=== PATIENT | female | born 1955 | race Caucasian/White ===

== ENCOUNTER 2016-09-12 07:54 | Emergency (ER) | payer BC ==
--- NOTE | 2016-09-12 08:12 | CPEKG ---
Heart Rate: 74 RR Interval: 811 P-R Interval: 152 QRSD Interval: 88 QT Interval: 384 QTC Interval: 426 P Gray: 47 QRS Gray: 37 T Wave Gray: 38 EKG Severity - NORMAL ECG - EKG Impression: SINUS RHYTHM Electronically Signed By: Jim Cristobal 12-Sep-2016 09:16:26
[2016-09-12] MEDS ORDERED: LIDOCAINE 2% VISCOUS 15 ML UDCUP PO ONE (08:27)
[2016-09-12] MEDS ORDERED: HYOSCYAMINE SULFATE 0.125 MG TAB PO ONE (08:27)
[2016-09-12] MEDS ORDERED: MAG HYDROX/AL HYDROX/SIMETH 30 ML UDCUP PO ONE (08:27)
[2016-09-12 08:33] LABS: % IMMATURE GRANULYOCYTES 0.5 % (0.0-1.1); ABSOLUTE IMMATURE GRANULOCYTES 0.04 10^3/uL (0.00-0.10); ADD DIFF? NO; ADD MORPH? NO; ADD SCAN? NO; ATYPICAL LYMPHOCYTE FLAG 10 (0-99); FRAGMENT RBC FLAG 0 (0-99); HEMATOCRIT 44.4 % (38.0-47.0); HEMOGLOBIN 15.5 g/dL (12.6-16.3); LEFT SHIFT FLG 0 (0-99); LIPEMIA HEMOLYSIS FLAG 90 (0-99); MEAN CELL HEMOGLOBIN 31.8 pg (27.9-34.1); MEAN CELL HEMOGLOBIN CONCENTR. 34.9 g/dL (32.4-36.7); MEAN PLATELET VOLUME 9.1 fL (8.7-11.7); PLATELET CLUMPS FLAG 10 (0-99); PLATELET COUNT 288 10^3/uL (150-400); RED BLOOD CELL COUNT 4.88 10^6/uL (4.18-5.33); RED CELL DISTRIBUTION WIDTH 13.1 % (11.5-15.2)
[2016-09-12 08:51] LABS: CARBON DIOXIDE 20 mEq/l (22-31); CHLORIDE 106 mEq/L (97-110); POTASSIUM 4.2 mEq/L (3.5-5.2); SODIUM 139 mEq/L (134-144)
[2016-09-12 08:52] LABS: ALANINE AMINOTRANSFERASE 29 IU/L (9-52); ALBUMIN 4.4 g/dL (3.5-5.0); ALKALINE PHOSPHATASE 110 IU/L (38-126); ANION GAP 13 mEq/L (8-16); ASPARTATE AMINOTRANSFERASE 18 IU/L (14-46); BILIRUBIN,TOTAL 0.9 mg/dL (0.1-1.4); BILIRUBIN-CONJUGATED 0.3 mg/dL (0.0-0.5); BILIRUBIN-UNCONJUGATED 0.6 mg/dL (0.0-1.1); CALCIUM 9.9 mg/dL (8.5-10.4); GLOMERULAR FILTRATION RATE 56; GLUCOSE 103 mg/dL (70-100); TOTAL PROTEIN 7.7 g/dL (6.3-8.2)
[2016-09-12 09:03] LABS: TROPONIN I < 0.012 ng/mL (0-0.034)
--- NOTE | 2016-09-12 09:08 | EDPHY ---
H & P Stated Complaint: Midsternal CP since yesterday during dental procedure;didn't use NTG Time Seen by Provider: 09/12/16 08:10 HPI/ROS: CHIEF COMPLAINT: Substernal chest discomfort HISTORY OF PRESENT ILLNESS: The patient presents to the ED with a 1 day history of substernal chest discomfort. The patient's symptoms reportedly started while she was getting a root canal yesterday. They began at 4:00 p.m.. It has been a constant substernal ache that has been present since that time and continued to persist today. The patient does have a history of coronary artery disease and last underwent stenting of her LAD in November of 2015. The patient reports the symptoms she has today are not typical of her anginal equivalent. The patient denies pleuritic chest pain. She denies history of asymmetric calf pain or swelling. She denies abdominal pain, vomiting or diarrhea. The patient reports her symptoms are moderate in nature. REVIEW OF SYSTEMS: A comprehensive 10 point review of systems is otherwise negative aside from elements mentioned in the history of present illness. Source: Patient Exam Limitations: No limitations - Personal History Current Tetanus Diphtheria and Acellular Pertussis (TDAP): Yes - Medical/Surgical History Hx Asthma: No Hx Chronic Respiratory Disease: No Hx Diabetes: No Hx Cardiac Disease: Yes Hx Renal Disease: No Hx Cirrhosis: No Hx Alcoholism: No Hx HIV/AIDS: No Hx Splenectomy or Spleen Trauma: No Other PMH: prediabetes, htn, insomnia, psvt, gastritis, polyarthritis, v-d deficiency, hyperlipidemia, GERD, 3 stents 11/2015 - Social History Smoking Status: Current every day smoker - Physical Exam Exam: General Appearance: Alert, no distress Eyes: Pupils equal and round no pallor or injection ENT, Mouth: Mucous membranes moist Respiratory: There are no retractions, lungs are clear to auscultation Cardiovascular: Regular rate and rhythm Gastrointestinal: Abdomen is soft and nontender, no masses, bowel sounds normal Neurological: A&O, normal motor function, normal sensory exam, normal cranial nerves Skin: Warm and dry, no rashes Musculoskeletal: Neck is supple nontender Extremities: symmetrical, full range of motion Constitutional: Initial Vital Signs Temperature (C) 36.9 C 09/12/16 07:55 Heart Rate 72 09/12/16 07:55 Respiratory Rate 18 09/12/16 07:55 Blood Pressure 193/115 H 09/12/16 07:55 O2 Sat (%) 97 09/12/16 07:55 O2 Delivery Mode Room Air Allergies/Adverse Reactions: Penicillins Allergy (Intermediate, Verified 09/12/16 07:59) Hives Home Medications: Medication Instructions Recorded Acetaminophen [Tylenol ES 500 mg 1,000 mg PO BID PRN 12/15/14 (*)] Amitriptyline HCl [Elavil] 25 mg PO HS 12/15/14 Aspirin EC [Aspirin EC 325 mg (*)] 325 mg PO DAILY #0 tab 12/18/14 Clopidogrel Bisulfate [Plavix (*)] 75 mg PO DAILY #30 tab 12/18/14 Metoprolol Tartrate [Lopressor 25 50 mg PO BID #60 tab 12/18/14 mg (*)] Nitroglycerin [Nitrostat 0.4 mg 0.4 mg SL PRN PRN #1 btl 12/18/14 (*)] Losartan Potassium [Cozaar 50 mg 100 mg PO DAILY 12/21/15 (*)] Cephalexin [Keflex (*)] 500 mg PO 09/12/16 Ibuprofen [Motrin (*)] 800 mg PO 09/12/16 Medical Decision Making - Diagnostics EKG Interpretation: EKG: Complete interpretation has been separately recorded in the [facility] archive. Summary impression: Sinus rhythm Imaging Results: Imaging Impressions Chest X-Ray 09/12/16 08:27 Impression: No acute abnormality. ED Course/Re-evaluation: I reviewed the patient's past medical records. Her initial EKG demonstrates no evidence of ischemia. The patient has had symptoms since 4:00 p.m. yesterday. Her initial troponin is also negative. The patient did receive a GI cocktail. The patient's chest x-ray demonstrates no evidence of acute disease. In the patient has normal liver function tests and lipase. I re-evaluated the patient at 9:30 a.m.. She is essentially asymptomatic at this point time after a GI cocktail. I do believe she presents to the ED with likely esophageal discomfort in the setting of recent dental work which she was in a supine position for prolonged period of time. The patient states that her symptoms today were not like her anginal equivalent. The patient did undergo a angiogram in November of 2015. She had no significant disease noted outside the area of her LAD which was stented at that point time. The patient does understand that we cannot fully exclude occult progressive coronary artery disease. The patient would like to follow up with her art model as an outpatient. She would like to be discharged home. My suspicion is that the etiology of her symptoms is secondary to reflux Differential Diagnosis: Differential diagnosis considered includes esophageal spasm, acute coronary syndrome, pericarditis, myocardial infarction, pancreatitis - Data Points Laboratory Results: Laboratory Results 09/12/16 08:23 09/12/16 08:23 09/12/16 09/12/16 08:23 08:23 WBC 8.75 10^3/uL 10^3/uL (3.80-9.50) RBC 4.88 10^6/uL 10^6/uL (4.18-5.33) Hgb 15.5 g/dL g/dL (12.6-16.3) Hct 44.4 % % (38.0-47.0) MCV 91.0 fL fL (81.5-99.8) MCH 31.8 pg pg (27.9-34.1) MCHC 34.9 g/dL g/dL (32.4-36.7) RDW 13.1 % % (11.5-15.2) Plt Count 288 10^3/uL 10^3/uL (150-400) MPV 9.1 fL fL (8.7-11.7) Neut % (Auto) 56.8 % % (39.3-74.2) Lymph % (Auto) 31.5 % % (15.0-45.0) [place] % (Auto) 8.5 % % (4.5-13.0) Eos % (Auto) 2.2 % % (0.6-7.6) Baso % (Auto) 0.5 % % (0.3-1.7) Nucleat RBC Rel Count 0.0 % % (0.0-0.2) Absolute Neuts (auto) 4.98 10^3/uL 10^3/uL (1.70-6.50) Absolute Lymphs (auto) 2.76 10^3/uL 10^3/uL (1.00-3.00) Absolute Monos (auto) 0.74 10^3/uL 10^3/uL (0.30-0.80) Absolute Eos (auto) 0.19 10^3/uL 10^3/uL (0.03-0.40) Absolute Basos (auto) 0.04 10^3/uL 10^3/uL (0.02-0.10) Absolute Nucleated RBC 0.00 10^3/uL 10^3/uL (0-0.01) Immature Gran % 0.5 % % (0.0-1.1) Immature Gran # 0.04 10^3/uL 10^3/uL (0.00-0.10) Sodium 139 mEq/L mEq/L (134-144) Potassium 4.2 mEq/L mEq/L (3.5-5.2) Chloride 106 mEq/L mEq/L (97-110) Carbon Dioxide 20 mEq/l L mEq/l (22-31) Anion Gap 13 mEq/L mEq/L (8-16) BUN 14 mg/dL mg/dL (7-23) Creatinine 1.0 mg/dL mg/dL (0.6-1.0) Estimated GFR 56 Glucose 103 mg/dL H mg/dL (70-100) Calcium 9.9 mg/dL mg/dL (8.5-10.4) Total Bilirubin 0.9 mg/dL mg/dL (0.1-1.4) Conjugated Bilirubin 0.3 mg/dL mg/dL (0.0-0.5) Unconjugated Bilirubin 0.6 mg/dL mg/dL (0.0-1.1) AST 18 IU/L IU/L (14-46) ALT 29 IU/L IU/L (9-52) Alkaline Phosphatase 110 IU/L IU/L (38-126) Troponin I < 0.012 ng/mL ng/mL (0-0.034) Total Protein 7.7 g/dL g/dL (6.3-8.2) Albumin 4.4 g/dL g/dL (3.5-5.0) Lipase 102.0 IU/L IU/L (23-300) Medications Given: Discontinued Medications Al Hydroxide/Mg Hydroxide (Maalox Susp) 30 ml PO ONCE ONE Stop: 09/12/16 08:28 Last Admin: 09/12/16 08:41 Dose: 30 ml Hyoscyamine Sulfate (Levsin, Hyomax-Sl) 0.25 mg PO ONCE ONE Stop: 09/12/16 08:28 Last Admin: 09/12/16 08:40 Dose: 0.25 mg Lidocaine (Lidocaine 2% Viscous) 15 ml PO ONCE ONE Stop: 09/12/16 08:28 Last Admin: 09/12/16 08:41 Dose: 15 ml Departure - Departure Disposition: Home, Routine, Self-Care Clinical Impression: Chest pain Condition: Good Instructions: Chest Pain (ED) Additional Instructions: 1. Please return to the ED for markedly worsening pain or other concerns. 2. Please use Maalox and Zantac as needed. 3. The testing done in the emergency department today demonstrates no evidence of a heart attack. 4. Given your history of coronary artery disease I do recommend close follow up with your regular art model. Please contact their office today to schedule a follow-up visit within the week. 5. Please return to the ED immediately for any symptoms which are worsening, becoming more typical of your history of angina, difficulty breathing or other concerns.
[2016-09-12 10:02] VITALS: BP 140/105; PULSE 65; RESP 18; TEMP 97.7; O2SAT 92
== END 2016-09-12 10:00 | disposition home or self-care (01) ==
DX: R07.9 Chest pain, unspecified (principal); I10 Essential (primary) hypertension; F17.200 Nicotine dependence, unspecified, uncomplicated; I25.10 Atherosclerotic heart disease of native coronary artery without angina pectoris; Z79.82 Long term (current) use of aspirin; Z95.5 Presence of coronary angioplasty implant and graft

== ENCOUNTER → 2017-04-01 | Outpatient (CLI) | payer BC | LOC: FIMAGING 06:57 | PROVIDERS: ATTEND Orthopaedic Surgery | DX: S46.811A Strain of other muscles, fascia and tendons at shoulder and upper arm level, right arm, initial encounter (principal); M75.91 Shoulder lesion, unspecified, right shoulder ==

== ENCOUNTER 2017-05-15 14:49 | Inpatient (IN) | payer BC ==
[2017-05-15] MEDS ORDERED: IPRATROPIUM/ALBUTEROL 3 ML DEYVIAL IH ONE (14:57)
--- NOTE | 2017-05-15 14:59 | EDPHY ---
H & P Time Seen by Provider: 05/15/17 14:52 HPI/ROS: CHIEF COMPLAINT: Shortness of breath HISTORY OF PRESENT ILLNESS: Patient is a history of cardiac stenting and asthma or COPD. She does continue to smoke. She had a little bit of a cough the last 2 days but had surgery on her right rotator cuff today and was hypoxic afterwards. She got 2 albuterol nebulized treatments and was transported to the ED for further evaluation. Here she feels like she still short of breath and a little bit tight in her chest. No chest pain. No hemoptysis. No fever or chills. Symptoms are little bit better after albuterol but still is hypoxic on room air. Moderate severity. REVIEW OF SYSTEMS: Eye: no change in vision ENT: no sore throat Cardiac: no chest pain or syncope Pulmonary: HPI Abdomen: no vomiting, diarrhea, abdominal pain Musculoskeletal: Right shoulder and postop sling Skin: no rash Neuro: no headache Constitutional: no fever : no urinary symptoms A comprehensive 10 point review of systems is otherwise negative aside from elements mentioned in the history of present illness. PAST MEDICAL HISTORY: Cardiac disease with stenting, COPD Social history: Still smoking cigarettes General Appearance: Alert and conversant, cooperative. Eyes: No scleral icterus. ENT, Mouth: Normal mucous membranes. No angioedema. Respiratory: Bilateral expiratory wheezes and rhonchi. Speaks in full sentences. Cardiovascular: Regular rate and rhythm. Gastrointestinal: Abdomen is soft and non tender. Neurological: Alert, face symmetric, normal motor and sensory in extremities. Skin: Warm and dry, no rashes. Musculoskeletal: No calf tenderness. Right shoulder is in a postop sling. Psychiatric: Not agitated. Emergency Department course/MDM: Clinical presentation most likely bronchospasm. Plan for EKG and troponin and D -dimer. Albuterol nebulizer DuoNeb. 1603: discussed with Maureen her anesthesiologist. 1610: negative CTA per Kadi, also personally reviewed and interpreted. Will admit patient for persistent bronchospasm with hypoxemia.\ 1644: 80 mg IV Solu-Medrol, still 91% on 4 L, admission for nebulizer and steroids and supportive care, do not think it is likely she has pneumonia or pulmonary embolism, do not think anticoagulants or antibiotics are indicated. Smoking Status: Current every day smoker Constitutional: Initial Vital Signs Temperature (C) 36.9 C 05/15/17 14:55 Heart Rate 87 05/15/17 14:55 Respiratory Rate 18 05/15/17 14:55 Blood Pressure 152/75 H 05/15/17 14:55 O2 Sat (%) 91 L 05/15/17 14:55 O2 Delivery Mode Nasal Cannula O2 (L/minute) 4 Allergies/Adverse Reactions: Penicillins Allergy (Intermediate, Verified 05/15/17 15:37) Hives Home Medications: Medication Instructions Recorded Acetaminophen [Tylenol ES 500 mg 1,000 mg PO BID PRN 12/15/14 (*)] Amitriptyline HCl [Elavil] 25 mg PO HS 12/15/14 Aspirin EC [Aspirin EC 325 mg (*)] 325 mg PO DAILY #0 tab 12/18/14 Metoprolol Tartrate [Lopressor 25 50 mg PO BID #60 tab 12/18/14 mg (*)] Nitroglycerin [Nitrostat 0.4 mg 0.4 mg SL PRN PRN #1 btl 12/18/14 (*)] Losartan Potassium [Cozaar 50 mg 100 mg PO DAILY 12/21/15 (*)] Ibuprofen [Motrin (*)] 400 mg PO Q6 PRN 09/12/16 Omeprazole [Omeprazole] 40 mg PO DAILY 05/15/17 amLODIPine BESYLATE [Amlodipine 10 mg PO DAILY 05/15/17 Besylate] Medical Decision Making - Diagnostics EKG Interpretation: 12-lead EKG interpreted by me; official reading is in trace master. My interpretation is sinus rhythm rate 76 no ischemic changes. Imaging Results: Imaging Impressions Chest X-Ray 05/15/17 14:57 Impression: 1. Hazy increased markings at the lung bases suggestive of effusions with adjacent compressive atelectatic change. May also be some dependent edema. Evaluate for possible fluid overload. 2. Band of subsegmental atelectasis right infrahilar region. Chest/Thorax CTA 05/15/17 15:27 Impression: 1. No definite pulmonary thromboemboli. 2. Atherosclerotic aorta without aneurysm or dissection. 2. Elevated right hemidiaphragm. 4. Right lower lobe opacity representing atelectasis versus pneumonitis. Recommend follow up until clear. Findings and recommendations discussed with Emergency Department physician, Hermes Pino at 1610 hour, 05/15/2017. Final report concurs with initial preliminary interpretation. A test result has been communicated to a licensed care provider and documented in the [facility] Critical Result system on 05/15/2017 16:16, Message ID [id number]. Imaging: I viewed and interpreted images myself Differential Diagnosis: Differential diagnosis considered for shortness of breath including but not limited to pulmonary infectious process, COPD, asthma, pulmonary embolus and congestive heart failure. Consult/Admit Bed Type: [facility] - Data Points Laboratory Results: Laboratory Results 05/15/17 14:51 05/15/17 14:51 05/15/17 05/15/17 05/15/17 14:51 14:51 14:51 WBC 7.39 10^3/uL 10^3/uL (3.80-9.50) RBC 4.66 10^6/uL 10^6/uL (4.18-5.33) Hgb 14.9 g/dL g/dL (12.6-16.3) Hct 43.6 % % (38.0-47.0) MCV 93.6 fL fL (81.5-99.8) MCH 32.0 pg pg (27.9-34.1) MCHC 34.2 g/dL g/dL (32.4-36.7) RDW 14.1 % % (11.5-15.2) Plt Count 203 10^3/uL 10^3/uL (150-400) MPV 9.4 fL fL (8.7-11.7) Neut % (Auto) 86.5 % H % (39.3-74.2) Lymph % (Auto) 11.2 % L % (15.0-45.0) [place] % (Auto) 1.5 % L % (4.5-13.0) Eos % (Auto) 0.0 % L % (0.6-7.6) Baso % (Auto) 0.1 % L % (0.3-1.7) Nucleat RBC Rel Count 0.0 % % (0.0-0.2) Absolute Neuts (auto) 6.39 10^3/uL 10^3/uL (1.70-6.50) Absolute Lymphs (auto) 0.83 10^3/uL L 10^3/uL (1.00-3.00) Absolute Monos (auto) 0.11 10^3/uL L 10^3/uL (0.30-0.80) Absolute Eos (auto) 0.00 10^3/uL L 10^3/uL (0.03-0.40) Absolute Basos (auto) 0.01 10^3/uL L 10^3/uL (0.02-0.10) Absolute Nucleated RBC 0.00 10^3/uL 10^3/uL (0-0.01) Immature Gran % 0.7 % % (0.0-1.1) Immature Gran # 0.05 10^3/uL 10^3/uL (0.00-0.10) D-Dimer 0.93 ug/mLFEU H ug/mLFEU (0.00-0.50) Sodium 140 mEq/L mEq/L (135-145) Potassium 4.4 mEq/L mEq/L (3.5-5.2) Chloride 104 mEq/L mEq/L (97-110) Carbon Dioxide 23 mEq/l mEq/l (22-31) Anion Gap 13 mEq/L mEq/L (8-16) BUN 19 mg/dL mg/dL (7-23) Creatinine 0.8 mg/dL mg/dL (0.6-1.0) Estimated GFR > 60 Glucose 148 mg/dL H mg/dL (70-100) Calcium 9.0 mg/dL mg/dL (8.5-10.4) Troponin I < 0.012 ng/mL ng/mL (0.000-0.034) Medications Given: Discontinued Medications Albuterol (Proventil Neb) 3 ml IH EDNOW ONE Stop: 05/15/17 15:45 Last Admin: 05/15/17 17:01 Dose: 3 ml Albuterol/Ipratropium (Duoneb) 3 ml IH EDNOW ONE Stop: 05/15/17 14:58 Last Admin: 05/15/17 15:04 Dose: 3 ml Methylprednisolone Sodium Succinate (Solu-Medrol) 80 mg IVP EDNOW ONE Stop: 05/15/17 16:44 Last Admin: 05/15/17 17:04 Dose: 80 mg Departure - Departure Disposition: [facility] Inpatient Acute Clinical Impression: Chronic obstructive pulmonary disease with acute exacerbation Condition: Good
[2017-05-15 15:04] LABS: PLATELET COUNT 203 10^3/uL (150-400)
--- NOTE | 2017-05-15 15:07 | CPEKG ---
Heart Rate: 76 RR Interval: 789 P-R Interval: 160 QRSD Interval: 88 QT Interval: 380 QTC Interval: 428 P Richmond: 30 QRS Richmond: 35 T Wave Richmond: 35 EKG Severity - NORMAL ECG - EKG Impression: SINUS RHYTHM Electronically Signed By: Hermes Pino 15-May-2017 16:07:05
[2017-05-15] MEDS ORDERED: IOPAMIDOL (ISOVUE 370) 100 ML BTL IV ONE (15:36)
[2017-05-15] MEDS ORDERED: ALBUTEROL 3 ML DEYVIAL IH ONE (15:44)
[2017-05-15] MEDS ORDERED: methylPREDNISolone SOD SUCC 125 MG/2 ML VIAL IVP ONE (16:43)
[2017-05-15] MEDS ORDERED: ONDANSETRON DISINTEGRATING 4 MG TAB PO PRN (17:07)
[2017-05-15] MEDS ORDERED: ONDANSETRON 4 MG/2 ML VIAL IVP PRN (17:07)
[2017-05-15] MEDS ORDERED: NITROGLYCERIN 0.4 MG BTL SL PRN (17:11)
[2017-05-15] MEDS ORDERED: IBUPROFEN 800 MG TAB PO PRN (17:11)
[2017-05-15] MEDS ORDERED: ALBUTEROL 3 ML DEYVIAL IH PRN (17:15)
--- NOTE | 2017-05-15 17:45 | GHP ---
[f rep st] HISTORY AND PHYSICAL DATE OF ADMISSION: 05/15/2017 HISTORY OF PRESENT ILLNESS: The patient is a pleasant 61-year-old female with a history of coronary disease, longstanding smoking history without clinically apparent COPD, who underwent elective outpat ient rotator cuff repair with Dr. Christelle López, it was done here locally. Over the last couple days prior to surgery she notes a little bit of cough prior to surgery. After s urgery in the PACU she was found to be hypoxic with wheezing and referred to the emergency department . She was 91% on 4 L on arrival. When I speak with the patient, she says she has had a cough, it is dry, she did get a flu shot. She has not had myalgias. She said her pain in her right arm is relat ively well controlled because the nerve block is still present. She does not have any chest pain. H er anginal equivalent is shortness of breath. She underwent angiogram with stent placement in er 2015. She recently transitioned from aspirin and Plavix to just aspirin at the recommendation of her horse shoer Dr. Skyler Ferrera. She has not had myalgias. REVIEW OF SYSTEMS: Complete 10-point review of systems conducted, negative except as noted in the HP I. PAST MEDICAL HISTORY: Longstanding smoking, reflux, hypertension, coronary artery disease. ALLERGIES: Penicillins to which she gets a rash. HOME MEDICATIONS: Tylenol, amitriptyline, amlodipine, aspirin, ibuprofen. We will start metoprolol, nitroglycerin and omeprazole. SOCIAL HISTORY: She lives in [place], 6-8 cigarettes a day, minimal alcohol. FAMILY HISTORY: Reviewed and unremarkable. PHYSICAL EXAMINATION: VITAL SIGNS: Temp 36.9, blood pressure 152/75, pulse 87, breathing 18 times a minute, 91% on 4 L. GENERAL: No acute distress. Increased work of breathing. HEENT: Sclerae ani cteric. Oropharynx clear. Mucous membranes moist. NECK: Supple, without lymphadenopathy or JVD. LUNGS: Show prolonged expiratory phase and expiratory wheezes with use of accessary muscles. There are crackles in the right side. HEART: S1, S2. Not tachycardic. ABDOMEN: Soft, nontender, nondis tended. EXTREMITIES: Lower extremities without edema. Calves are nontender. Her right hand is antonietta rovascularly intact. LABORATORY STUDIES: White count 7.4, hematocrit 44, platelets are 203,000, D-dimer is elevated at 0. 93. Sodium 140, potassium 4.4, chloride 104, bicarb 23, BUN 19, creatinine 0.8. Troponin less than 0.012. Glucose 148. Chest x-ray, interpreted by me, shows clear lungs, other than right lower lobe atelectasis. EKG, interpreted by me, shows sinus with no ST or T-wave changes. CTA shows no pulmona ry embolism. I discussed case with Dr. Hermes Pino. ASSESSMENT/PLAN: A 61-year-old female with postoperative bronchospasm. 1. Bronchospasm. The patient does not have myalgias or other prodrome suggestive of influenza. I t hink this is probably related to a viral upper respiratory infection in the setting of recent surgery . We will provide her with steroids and nebulizers. 2. Atelectasis. The patient had recent surgery on the right. She has large atelectasis. I will gi ve her incentive spirometer. 3. Coronary artery disease. Will continue her medications. Her EKG is nonischemic. She has a nega tive troponin and no chest symptoms. 4. Pain. Scheduled Tylenol, p.r.n., oxycodone p.r.n., and ibuprofen. 5. Prophylaxis. Pharmacologic prophylaxis indicated. DISPOSITION: Inpatient status. I think the patient is going to require 2 midnights to turn around. /[id number]/MODL
[2017-05-15] MEDS: methylPREDNISolone SOD SUCC 125 MG/2 ML VIAL IVP SCH ×2 (19:15→23:39)
[2017-05-15] MEDS: IPRATROPIUM/ALBUTEROL 3 ML DEYVIAL IH SCH ×2 (20:12→22:35)
[2017-05-15] MEDS: ACETAMINOPHEN 325 MG TAB PO SCH ×2 (21:20)
[2017-05-15] MEDS: METOPROLOL TARTRATE 25 MG TAB PO SCH (21:21)
[2017-05-15] MEDS: oxyCODONE IR 5 MG TAB PO PRN (21:21)
[2017-05-15] MEDS: AMITRIPTYLINE HCL 25 MG TAB PO SCH (21:22)
[2017-05-16] MEDS: oxyCODONE IR 5 MG TAB PO PRN ×5 (03:34→21:30)
[2017-05-16] MEDS: IPRATROPIUM/ALBUTEROL 3 ML DEYVIAL IH SCH ×4 (05:36→22:06)
[2017-05-16] MEDS: ACETAMINOPHEN 325 MG TAB PO SCH ×2 (05:58→14:49)
[2017-05-16] MEDS: methylPREDNISolone SOD SUCC 125 MG/2 ML VIAL IVP SCH ×4 (05:59→23:53)
--- NOTE | 2017-05-16 09:01 | PDMN ---
Medical Necessity Medical necessity: Patient meets inpatient criteria per physician note and [facility] Pulmonary Disease GRG (hypoxemia/O2 sat 91% on 4 LPM O2 postop for rotator cuff repair; new O2 requirement/likely postop bronchospasm and RLL atelectasis on CT ; anticipated LOS > 2 midnights for ongoing supplemental O2, frequent nebulizers , IV steroids, monitoring of respiratory status postop.)
[2017-05-16] MEDS ORDERED: PNEUMOCOCCAL 0.5ML VACCINE VIAL IM ONE (09:04)
--- NOTE | 2017-05-16 09:17 | ASMTCMCOM ---
CM Note CM Note Notes: Patient admitted for bronchospasm and atelectesis in the setting of rotator cuff surgery yesterday 05/15. She is lifelong smoker with COPD. I spoke with patient about her planned follow up for surgery - she has an appointment with Dr López and instructions to wear her sling for 6 weeks. PT to follow after that. Patient lives with her partner Uli and is normally independent. No discharge needs identified. Current CM Discharge plan: home independent Date Signed: 05/16/2017 09:16 AM Electronically Signed By:Elizabeth Leyva RN
[2017-05-16] MEDS: PANTOPRAZOLE SODIUM 40 MG TAB PO SCH (09:26)
[2017-05-16] MEDS: LOSARTAN POTASSIUM 50 MG TAB PO SCH (09:26)
[2017-05-16] MEDS: ENOXAPARIN 40 MG/0.4 ML SYR SC SCH (09:26)
[2017-05-16] MEDS: METOPROLOL TARTRATE 25 MG TAB PO SCH ×2 (09:26→21:25)
[2017-05-16] MEDS: ASPIRIN EC 325 MG TAB PO SCH (09:26)
--- NOTE | 2017-05-16 11:20 | HOSPPROG ---
Hospitalist Progress Note Assessment/Plan: 61 yo F w AHRA following shoulder surgery AHRA: multifactorial: atelectasis + possible temporary diaphragmatic paralysis from nerve block + smoking related lung disease continue 02 and supplemental 02 cxr in AM if not improved reactive airway disease: steroids and nebs unchanged from yesterday on scheduled duonebs pain: scheduled tylenol and prn narcotics constipation: add miralax dispo: inpt Subjective: more hypoxemic. still w cough and increased work of breathing Objective: Vital Signs Temp Pulse Resp BP Pulse Ox 37.0 C 76 19 117/65 91 L 05/16/17 07:31 05/16/17 07:31 05/16/17 07:31 05/16/17 07:31 05/16/17 07:31 Laboratory Results 05/16/17 03:27 05/15/17 05/16/17 05/17/17 05:59 05:59 05:59 Intake Total 380 Balance 380 - Physical Exam Constitutional: no apparent distress, appears nourished Eyes: PERRL, anicteric sclera Ears, Nose, Mouth, Throat: moist mucous membranes, hearing normal Cardiovascular: regular rate and rhythym, no murmur, rub, or gallop Respiratory: no respiratory distress, other (wheezing and decreased air movement ) Gastrointestinal: normoactive bowel sounds, soft, non-tender abdomen Genitourinary: no bladder fullness, No colon in urethra Skin: warm, normal color Musculoskeletal: full muscle strength, no muscle tenderness ICD10 Worksheet Patient Problems: Problems Problem Status Onset Chronic obstructive pulmonary disease with acute exacerbation Acute Acute non-ST segment elevation myocardial infarction Acute Coronary artery disease Acute Hyperlipidemia Acute Hypertension Acute
[2017-05-16] MEDS: ACETAMINOPHEN 500 MG TAB PO SCH ×2 (14:46→21:26)
[2017-05-16] MEDS: AMITRIPTYLINE HCL 25 MG TAB PO SCH (21:25)
[2017-05-17] MEDS: IPRATROPIUM/ALBUTEROL 3 ML DEYVIAL IH SCH ×4 (05:45→22:33)
[2017-05-17] MEDS: methylPREDNISolone SOD SUCC 125 MG/2 ML VIAL IVP SCH ×2 (06:26→12:37)
[2017-05-17] MEDS: oxyCODONE IR 5 MG TAB PO PRN ×3 (06:27→22:43)
[2017-05-17] MEDS: ACETAMINOPHEN 500 MG TAB PO SCH ×3 (06:28→21:04)
[2017-05-17] MEDS: ASPIRIN EC 325 MG TAB PO SCH (08:03)
[2017-05-17] MEDS: LOSARTAN POTASSIUM 50 MG TAB PO SCH (08:03)
[2017-05-17] MEDS: ENOXAPARIN 40 MG/0.4 ML SYR SC SCH (08:04)
[2017-05-17] MEDS: PANTOPRAZOLE SODIUM 40 MG TAB PO SCH (08:04)
[2017-05-17] MEDS: METOPROLOL TARTRATE 25 MG TAB PO SCH ×2 (08:04→21:11)
--- NOTE | 2017-05-17 11:46 | HOSPPROG ---
Hospitalist Progress Note Assessment/Plan: 61 yo F w AHRA following shoulder surgery AHRF: multifactorial: atelectasis + possible temporary diaphragmatic paralysis from nerve block + smoking related lung disease continue 02 and supplemental 02 cxr today send resp viral panel reactive airway disease: steroids and nebs unchanged from yesterday on scheduled duonebs cough: sig cough w any movement or deep inspiration scheduled robitussin AC pain: scheduled tylenol and prn narcotics constipation: add miralax dispo: inpt Subjective: coughing and feels like she cannot take a deep breath. ambulated on RA- sat in 70's Objective: Vital Signs Temp Pulse Resp BP Pulse Ox 36.8 C 80 18 120/70 95 05/17/17 08:02 05/17/17 11:01 05/17/17 11:01 05/17/17 08:02 05/17/17 11:01 Laboratory Results 05/16/17 03:27 05/16/17 05/17/17 05/18/17 05:59 05:59 05:59 Intake Total 380 1500 Balance 380 1500 - Physical Exam Constitutional: no apparent distress, appears nourished Eyes: PERRL, anicteric sclera Ears, Nose, Mouth, Throat: moist mucous membranes, hearing normal Cardiovascular: regular rate and rhythym, no murmur, rub, or gallop Respiratory: other (increased work of breathing w decreased air movement) Gastrointestinal: normoactive bowel sounds Genitourinary: no bladder fullness, No colon in urethra Skin: warm, normal color Musculoskeletal: full muscle strength Neurologic: AAOx3 ICD10 Worksheet Patient Problems: Problems Problem Status Onset Chronic obstructive pulmonary disease with acute exacerbation Acute Acute non-ST segment elevation myocardial infarction Acute Coronary artery disease Acute Hyperlipidemia Acute Hypertension Acute
[2017-05-17] MEDS: GUAIFENESIN/DM 10 ML UDCUP PO SCH ×3 (13:58→21:12)
[2017-05-17] MEDS ORDERED: FUROSEMIDE 20 MG/2 ML VIAL IVP ONE (15:12)
[2017-05-17] MEDS: OSELTAMIVIR PHOSPHATE 75 MG CAP PO SCH (18:15)
[2017-05-17] MEDS: AMITRIPTYLINE HCL 25 MG TAB PO SCH (21:04)
[2017-05-18] MEDS: ACETAMINOPHEN 500 MG TAB PO SCH ×3 (05:30→22:24)
[2017-05-18] MEDS: GUAIFENESIN/DM 10 ML UDCUP PO SCH ×6 (05:30→22:24)
[2017-05-18] MEDS: IPRATROPIUM/ALBUTEROL 3 ML DEYVIAL IH SCH ×4 (05:34→23:19)
[2017-05-18] MEDS: oxyCODONE IR 5 MG TAB PO PRN ×2 (09:29→22:25)
[2017-05-18] MEDS: OSELTAMIVIR PHOSPHATE 75 MG CAP PO SCH ×2 (09:30→18:53)
[2017-05-18] MEDS: METOPROLOL TARTRATE 25 MG TAB PO SCH ×2 (09:30→22:25)
[2017-05-18] MEDS: LOSARTAN POTASSIUM 50 MG TAB PO SCH (09:31)
[2017-05-18] MEDS: predniSONE 20 MG TAB PO SCH (09:31)
[2017-05-18] MEDS: ASPIRIN EC 325 MG TAB PO SCH (09:32)
[2017-05-18] MEDS: ENOXAPARIN 40 MG/0.4 ML SYR SC SCH (09:32)
[2017-05-18] MEDS: PANTOPRAZOLE SODIUM 40 MG TAB PO SCH (09:32)
--- NOTE | 2017-05-18 09:48 | ECHO ---
[email or web address] [address] [address] Main: [phone] Fax: Transthoracic Echocardiogram Name: ADALID MCLAUGHLIN MR#: [id number] Study Date: 05/17/2017 Study Time: 05:08 PM Date of : 1955 Age: 61 year(s) Height: 160 cm (63 in.) Weight: 74.84 kg (165 lb.) BSA: 1.78 m2 Gender: Female Examination: Echo Indication: post op pulm edema Image Quality: Technically Difficult Contrast: Requested by: Edvin Pete BP: 123 mmHg/73 mmHg Heart Rate: Rhythm: Normal sinus rhythm Indication: post op pulm edema Procedure Staff Ostomy Care Nurse: Sherri Keller [facility] Reading Physician: Leoncio Carvajal Requesting Provider: Conclusions: 1)Normal LV size and systolic function with a LVEF of 65%. 2)Borderline concentric LVH with mild diastolic dysfunction noted. 3)Trivial MR without MV prolapse. 4Trivial TR with estimated normal PA pressures. 5)Trivial pericardial effusion noted vs prominent pericardial fat pad. Measurements: Chambers Valvular Assessment AV/MV Valvular Assessment TV/PV Normal Normal Normal Name Value Range Name Value Range Name Value Range Ao Nieves (MM): 2.6 cm (2.2 cm-3.7 AV Vmax: 1.93 m/s (1 m/s-1.7 PV Vmax: 0.96 m/s (0.6 m/s-0.9 cm) m/s) m/s) IVSd (2D): 1.0 cm (0.6 cm-1.1 AV maxP mmHg ( - ) PV PGmax: 4 mmHg ( - ) cm) LVOT Vmax: 1.24 m/s (0.7 m/s-1.1 LVDd (2D): 3.8 cm (3.9 cm-5.3 m/s) cm) MV E Vmax: 0.70 m/s ( - ) LVDs (2D): 2.5 cm (2.1 cm-4 MV A Vmax: 0.90 m/s ( - ) cm) MV E/A: 0.78 ( - ) LVPWd (2D): 1.0 cm ( - ) LVEF (MOD4): 65 % (>=55 %) RVDd(2D): 2.5 cm (1.9 cm-3.8 cmmm) Continued Measurements: Chambers Valvular Assessment AV/MV Name Value Name Value LADs Lon.0 cm MV DecTime: 222 m/s LA Area: 15.6 cm2 MV E' Septal: 0.05 m/s LA Volume: 41 ml MV E/E' Septal: 13.30 Patient: ADALID MCLAUGHLIN Study Date: 05/17/2017 Page 1 of 2 05:08 PM LA Volume Index: 23.0 ml/m2 MV E/E' Lateral: 5.80 Findings: Left Ventricle: Normal size left ventricle. Borderline concentric LV hypertrophy. Normal global systolic LV function. EF is 65 %. Grade 1 diastolic dysfunction (abnormal relaxation). Basal inferior hypokiness. Right Ventricle: Normal size right ventricle. Normal RV function. Left Atrium: The left atrium is normal in size. Right Atrium: The right atrium is normal in size. Mitral Valve: The mitral valve is normal in appearance and function. Trivial mitral valve regurgitation. Aortic Valve: The aortic valve is normal in appearance and function. There is no aortic valve regurgitation. No aortic valve stenosis is present. Tricuspid Valve: Tricuspid valve not well visualized. Trivial tricuspid valve regurgitation. Pulmonic Valve: The pulmonic valve is normal in appearance and function. There is no pulmonic regurgitation seen. Aorta: The aorta is normal. Normal size aortic root measuring 2.6 cm. Pericardium: Trivial pericardial effusion. (No Signature Object) Patient: ADALID MCLAUGHLIN Study Date: 05/17/2017 Page 2 of 2 05:08 PM [id number]
[2017-05-18] MEDS ORDERED: FUROSEMIDE 40 MG/4 ML VIAL IVP ONE (11:45)
[2017-05-18] MEDS ORDERED: IBUPROFEN 200 MG TAB PO PRN (11:50)
--- NOTE | 2017-05-18 11:54 | HOSPPROG ---
Hospitalist Progress Note Assessment/Plan: 61 yo F w AHRA following shoulder surgery AHRF: multifactorial: atelectasis + possible temporary diaphragmatic paralysis from nerve block + smoking related lung disease continue 02 and supplemental 02 cxr today send resp viral panel diastolic dysfunction: 02 requirement decreased w lasix re dose today echo showed diastolic dysfunction this is c/w acute diastolic heart failure influenza: tamiflu reactive airway disease: steroids and nebs unchanged from yesterday on scheduled duonebs cough: sig cough w any movement or deep inspiration scheduled robitussin AC pain: scheduled tylenol and prn narcotics constipation: tid miralax dispo: inpt Subjective: flu +. good response to lasix. echo w diastolic dysfunction Objective: Vital Signs Temp Pulse Resp BP Pulse Ox 36.8 C 80 18 136/92 H 89 L 05/18/17 08:00 05/18/17 08:00 05/18/17 08:00 05/18/17 08:00 05/18/17 08:00 Microbiology 05/17/17 11:34 Respiratory Panel (PCR) - Final Nasal, Sinus - [place] Viral Transport Influenza Virus Type B Laboratory Results 05/16/17 03:27 05/17/17 05/18/17 05/19/17 05:59 05:59 05:59 Intake Total 1500 500 Balance 1500 500 - Physical Exam Constitutional: no apparent distress, appears nourished Eyes: PERRL, anicteric sclera Ears, Nose, Mouth, Throat: moist mucous membranes, hearing normal Cardiovascular: regular rate and rhythym, no murmur, rub, or gallop Respiratory: no respiratory distress, expiratory wheeze, rhonchi Gastrointestinal: normoactive bowel sounds, soft, non-tender abdomen Genitourinary: No colon in urethra Skin: warm, normal color Musculoskeletal: full muscle strength Neurologic: AAOx3 ICD10 Worksheet Patient Problems: Problems Problem Status Onset Chronic obstructive pulmonary disease with acute exacerbation Acute Acute non-ST segment elevation myocardial infarction Acute Coronary artery disease Acute Hyperlipidemia Acute Hypertension Acute
[2017-05-18] MEDS: POLYETHYLENE GLYCOL 3350 17 GM PKT PO SCH ×3 (12:15→22:24)
[2017-05-18] MEDS: AMITRIPTYLINE HCL 25 MG TAB PO SCH (22:24)
[2017-05-19] MEDS ORDERED: SENNOSIDES 1 TAB PO PRN (02:00)
[2017-05-19] MEDS: ACETAMINOPHEN 500 MG TAB PO SCH ×2 (05:10→14:15)
[2017-05-19] MEDS: GUAIFENESIN/DM 10 ML UDCUP PO SCH ×2 (05:10→05:51)
[2017-05-19] MEDS: IPRATROPIUM/ALBUTEROL 3 ML DEYVIAL IH SCH ×2 (05:47→11:03)
[2017-05-19 07:25] VITALS: BP 111/94; PULSE 68; RESP 20; TEMP 98.2
[2017-05-19] MEDS ORDERED: MAGNESIUM CITRATE 300 ML BOTTLE PO ONE (09:47)
--- NOTE | 2017-05-19 09:50 | HOSPPROG ---
Hospitalist Progress Note Assessment/Plan: 61 yo F w AHRA following shoulder surgery AHRF: multifactorial: atelectasis + possible temporary diaphragmatic paralysis from nerve block + smoking related lung disease continue 02 and supplemental 02 cxr today influenza + 1. dc steroids 2. RA challenge 3. suspect will need home 02 diastolic dysfunction: 02 requirement decreased w lasix re dose today echo showed diastolic dysfunction this is c/w acute diastolic heart failure influenza: tamiflu reactive airway disease: steroids and nebs unchanged from yesterday on scheduled duonebs cough: sig cough w any movement or deep inspiration scheduled robitussin AC pain: scheduled tylenol and prn narcotics constipation: tid miralax mag citrate X 1 dispo: inpt Subjective: no BM. slightly improved Objective: Vital Signs Temp Pulse Resp BP Pulse Ox 36.8 C 68 20 111/94 H 94 05/19/17 07:22 05/19/17 07:22 05/19/17 07:22 05/19/17 07:22 05/19/17 07:22 Laboratory Results 05/19/17 03:38 05/18/17 05/19/17 05/20/17 05:59 05:59 05:59 Intake Total 500 750 Balance 500 750 - Physical Exam Constitutional: no apparent distress, appears nourished Eyes: PERRL, anicteric sclera Ears, Nose, Mouth, Throat: moist mucous membranes, hearing normal Cardiovascular: regular rate and rhythym, no murmur, rub, or gallop Respiratory: other (decreased breath sounds w scattered wheezes. improved) Gastrointestinal: normoactive bowel sounds, soft, non-tender abdomen Genitourinary: No colon in urethra Skin: warm, normal color Musculoskeletal: full muscle strength, no muscle tenderness Neurologic: AAOx3, sensation intact bilaterally Psychiatric: interacting appropriately ICD10 Worksheet Patient Problems: Problems Problem Status Onset Chronic obstructive pulmonary disease with acute exacerbation Acute Acute non-ST segment elevation myocardial infarction Acute Coronary artery disease Acute Hyperlipidemia Acute Hypertension Acute
[2017-05-19 10:11] VITALS: O2SAT 83
[2017-05-19] MEDS: LOSARTAN POTASSIUM 50 MG TAB PO SCH (11:22)
[2017-05-19] MEDS: POLYETHYLENE GLYCOL 3350 17 GM PKT PO SCH ×2 (11:22→17:37)
[2017-05-19] MEDS: PANTOPRAZOLE SODIUM 40 MG TAB PO SCH (11:23)
[2017-05-19] MEDS: ASPIRIN EC 325 MG TAB PO SCH (11:23)
[2017-05-19] MEDS: METOPROLOL TARTRATE 25 MG TAB PO SCH (11:23)
[2017-05-19] MEDS: OSELTAMIVIR PHOSPHATE 75 MG CAP PO SCH (11:24)
[2017-05-19] MEDS: ENOXAPARIN 40 MG/0.4 ML SYR SC SCH (11:24)
--- NOTE | 2017-05-19 11:27 | PDHOMEO2F ---
Home Oxygen Face to Face Home Orders: I certify that a physician or a nurse practitioner or physician's social human services assistants has had a mzvy-os-vclw encounter with this patient on the date of this order due to the diagnosis listed, which relates to the primary reason the patient requires home oxygen. Alternative treatments have been tried, or considered, and deemed ineffective. It is anticipated that supplemental oxygen will result in improvement with treatment. Home oxygen qualifying diagnosis: influenza SpO2 on room air (%): 81 Frequency of home oxygen needed: continuous Home oxygen liters per minute: 2 Home oxygen delivery device: mask, nasal cannula Concentrator: No E-tanks for mobility and back up: Yes If ordering portable O2, is the patient mobile in the home?: Yes I certify that, based on these findings, the home oxygen is medically necessary for this patient for the following length of time. Length of time home oxygen needed: 1 month
[2017-05-19] MEDS: predniSONE 20 MG TAB PO SCH (11:47)
--- NOTE | 2017-05-19 14:52 | GDS ---
[f rep st] DISCHARGE SUMMARY DISCHARGE DIAGNOSES: 1. Acute hypoxemic respiratory failure. 2. Status post rotator cuff repair. 3. Influenza B. 4. Diastolic dysfunction. 5. Smoking-related lung disease. Please see the admission history and physical by Dr. Alessandro Pete. The patient presented with shortne ss of breath and wheezing. She had elective rotator cuff repair. She had upper respiratory symptoms prior to that. She was ruled out for PE. She had a chest x-ray with right atelectasis, elevated ri ght hemidiaphragm. The patient remained with somewhat high oxygen requirements for a couple of days. Repeat chest x-ray showed mild pulmonary edema. She responded to Lasix. The patient was constipated and aggressive bowel regimen revealed success as measured by liquid bowel movement. The patient is discharged home on oxygen to complete a course of Tamiflu, as well as an M DI inhaler. She continues to smoke. /[id number]/MODL
--- NOTE | 2017-05-22 15:40 | PQFORM ---
PHYSICIAN QUERY FORM Needs Your Response This query form is being sent to you to assure this patient record is coded properly. 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 Pete, Can the ACUTE DIASTOLIC HEART FAILURE which is documented in the Progress Note dated 05/18/2017 be appropriate as an additional diagnosis on the discharge summary? Yes X No Other Clinically Undetermined Many thanks, Mirna Granados, [employer] PROGRAMMER HIM/Coding Dept. INSTRUCTIONS FOR RESPONSE: Answer question by clicking on the "Edit Document" button. Move cursor to area below the stars. When complete, hit "Save." Click on the "Sign" button, then click "Sign" again. Type in your PIN and hit "Enter." MTDD
== END 2017-05-19 16:54 | disposition home or self-care (01) | DRG 189 ==
LOC: EDUNIT# → OBSVTOIN 16:44 → F2W 18:15
PROVIDERS: ADMIT Internal Medicine; ATTEND Internal Medicine
DX: J96.01 Acute respiratory failure with hypoxia (principal); J44.1 Chronic obstructive pulmonary disease with (acute) exacerbation; I50.31 Acute diastolic (congestive) heart failure; J98.11 Atelectasis; J10.1 Influenza due to other identified influenza virus with other respiratory manifestations; M75.121 Complete rotator cuff tear or rupture of right shoulder, not specified as traumatic; I25.10 Atherosclerotic heart disease of native coronary artery without angina pectoris; F17.210 Nicotine dependence, cigarettes, uncomplicated; K59.00 Constipation, unspecified; J98.6 Disorders of diaphragm; Z95.5 Presence of coronary angioplasty implant and graft; Z23 Encounter for immunization; Z88.0 Allergy status to penicillin
CPT/HCPCS: 96374; G0009; J1650; J1940; J2930; J7512; J7613; Q9967

== ENCOUNTER → 2017-08-22 | Outpatient (CLI) | payer BC ==
[~2017-08-22] MED LIST: GADOBUTROL 7.5 ML VIAL IVP ONE; IOPAMIDOL (ISOVUE 370) 100 ML BTL IV ONE; LIDOCAINE 1% 300 MG/30 ML SDV ONE
== END ==
LOC: FIMAGING 10:30
PROVIDERS: ATTEND Orthopaedic Surgery
DX: M75.121 Complete rotator cuff tear or rupture of right shoulder, not specified as traumatic (principal); M67.811 Other specified disorders of synovium, right shoulder
CPT/HCPCS: A9585; Q9967

== ENCOUNTER 2017-09-01 05:50 | Day surgery (SDC) | payer BC ==
[2017-09-01] MEDS ORDERED: ceFAZolin 2 GM/SWFI 2 GM/20 ML SYR IVP ONE (06:00)
[2017-09-01] MEDS ORDERED: LR 1,000 ML IV ONE (06:12)
[2017-09-01] MEDS ORDERED: LIDOCAINE 1% 2 ML INJ ID PRN (06:12)
--- NOTE | 2017-09-01 06:45 | PDANEPAE ---
ANE History of Present Illness revision rotator cuff repair ANE Past Medical History - Cardiovascular History Hx Hypertension: Yes Hx Arrhythmias: No Hx Chest Pain: No Hx Coronary Artery / Peripheral Vascular Disease: Yes Hx CHF / Valvular Disease: No Hx Palpitations: No Cardiovascular History Comment: stent placed 2015 - Pulmonary History Hx COPD: Yes Hx Asthma/Reactive Airway Disease: No Hx Recent Upper Respiratory Infection: No Hx Oxygen in Use at Home: No Hx Sleep Apnea: No Sleep Apnea Screening Result - Last Documented: Negative Pulmonary History Comment: pt denies COPD. 05/15/17 COPD exacerbation. pt quit smoking 05/18 - Neurologic History Hx Cerebrovascular Accident: No Hx Seizures: No Hx Dementia: No - Endocrine History Hx Diabetes: No Endocrine History Comment: pt denies diabetes - Renal History Hx Renal Disorders: No - Liver History Hx Hepatic Disorders: No - Neurological & Psychiatric Hx Hx Neurological and Psychiatric Disorders: No - Cancer History Hx Cancer: No - Congenital Disorder History Hx Congenital Disorders: No - GI History Hx Gastrointestinal Disorders: Yes Gastrointestinal History Comment: reflux/gerd - Other Health History Other Health History: none - Chronic Pain History Chronic Pain: No - Surgical History Prior Surgeries: rotator cuff 2018. cardiac cath with stent placement 2016. [place] 2015 ANE Review of Systems Review of Systems: - Exercise capacity METS (RN): 3 METS ANE Patient History - Allergies Allergies/Adverse Reactions: Penicillins Allergy (Intermediate, Verified 08/28/17 11:06) Hives - Home Medications Home medications: home medication list seen and reviewed Home Medications: Acetaminophen [Tylenol ES 500 mg (*)] 12/15/14 [Last Taken 08/31/17] Amitriptyline HCl [Elavil] 12/15/14 [Last Taken 1 Day Ago ~08/31/17] Losartan Potassium [Cozaar 50 mg (*)] 12/21/15 [Last Taken 1 Day Ago ~08/31/17] Ibuprofen [Motrin (*)] 09/12/16 [Last Taken 1 Week Ago ~08/25/17] Omeprazole 05/15/17 [Last Taken 09/01/17 04:15] amLODIPine BESYLATE [Amlodipine Besylate] 05/15/17 [Last Taken 09/01/17 04:15] Albuterol Hfa Anes Only [Proair Hfa Icu (*)] 08/28/17 [Last Taken 3 Months Ago ~06/01/17] Aspirin EC [Aspirin EC 325 mg (*)] 08/28/17 [Last Taken 08/28/17] Metoprolol Tartrate [Lopressor 25 mg (*)] 08/28/17 [Last Taken 09/01/17 04:15] Nitroglycerin [Nitrostat 0.4 mg (*)] 08/28/17 [Last Taken Unknown] - NPO status NPO Since - Liquids (Date): 08/31/17 NPO Since - Liquids (Time): 23:30 NPO Since - Solids (Date): 08/31/17 NPO Since - Solids (Time): 19:30 - Anes Hx Anes Hx: no prior problems - Smoking Hx Smoking Status: Former smoker - Alcohol Use Alcohol Use: Rarely - Family Anes Hx Family Anes Hx: none Family Hx Anesthesia Complications: none ANE Labs/Vital Signs - Vital Signs Blood Pressure: 123/85 Heart Rate: 68 Respiratory Rate: 18 O2 Sat (%): 93 Height: 160.02 cm Weight: 72.575 kg ANE Physical Exam - Airway Neck exam: decreased ROM Mallampati Score: Class 3 Mouth exam: normal dental/mouth exam - Pulmonary Pulmonary: no respiratory distress - Cardiovascular Cardiovascular: regular rate and rhythym - ASA Status ASA Status: III ANE Anesthesia Plan Anesthesia Plan: general endotracheal anesthesia Regional Anesthesia: interscalene BP NB
[2017-09-01] MEDS ORDERED: MIDAZOLAM 2 MG/2 ML VIAL IVP ONE (06:47)
[2017-09-01] MEDS ORDERED: BACITRACIN 50,000 UNITS/10 ML SYR IRR ONE (06:49)
[2017-09-01] MEDS ORDERED: POLYMYXIN B SULFATE 500,000 UNIT/10 ML SYR IRR ONE (06:49)
[2017-09-01] MEDS ORDERED: BUPIVACAINE/EPI 0.5% 30 ML SDV ONE (06:49)
[2017-09-01] MEDS ORDERED: ceFAZolin 2 GM/DEXTROSE 100 ML IV ONE (07:00)
[2017-09-01] MEDS ORDERED: clonIDINE 1 MG/10 ML VIAL EP ONE (07:00)
[2017-09-01] MEDS ORDERED: fentaNYL 100 MCG/2 ML INJ ONE (07:00)
[2017-09-01] MEDS ORDERED: PROPOFOL 200 MG/20 ML VIAL ONE ×2 (07:13→08:25)
[2017-09-01] MEDS ORDERED: LIDOCAINE 2% 100 MG/5 ML SYR ONE (07:14)
--- NOTE | 2017-09-01 07:16 | PDHPUP ---
History & Physical Update H&P update statement: This history and physical update is based on an assessment of the patient which was completed after admission or registration (within 24 hours), but prior to the surgery/procedure. H&P update: H&P reviewed & patient examined, no change in patient's condition since H&P completed
[2017-09-01] MEDS ORDERED: PHENYLEPHRINE 10 MG/ML SDV ONE (07:45)
[2017-09-01] MEDS ORDERED: ePHEDrine SULFATE 25 MG/5 ML SYR ONE (08:26)
[2017-09-01] MEDS ORDERED: ONDANSETRON 4 MG/2 ML VIAL IVP PRN ×2 (09:37→09:41)
[2017-09-01] MEDS ORDERED: fentaNYL 100 MCG/2 ML INJ IVP PRN (09:37)
[2017-09-01] MEDS ORDERED: oxyCODONE IR 5 MG TAB PO PRN (09:37)
[2017-09-01] MEDS ORDERED: HYDROCODONE/APAP 5/325 TAB PO PRN (09:37)
[2017-09-01] MEDS ORDERED: ACETAMINOPHEN 500 MG TAB PO PRN (09:37)
[2017-09-01] MEDS ORDERED: HYDROmorphONE/DILAUDID 2 MG/ML INJ IVP PRN (09:37)
[2017-09-01] MEDS ORDERED: ALBUTEROL 3 ML DEYVIAL IH PRN (09:37)
[2017-09-01] MEDS ORDERED: NALOXONE HCL 0.4 MG/ML INJ IVP PRN (09:37)
--- NOTE | 2017-09-01 09:37 | POSTANESTH ---
Post Anesthetic Evaluation Cardiovascular Status: Normal, Stable, Similar to Pre-Op Cond Respiratory Status: Normal, Stable, Tx Decrease in SpO2 Level of Consciousness/Mental Status: Can Participate in Eval, Alert and Oriented Pain Control: Adequate, Prn Tx Ordered Nausea/Vomiting Control: Adequate, Prn Tx Ordered Complications Possibly Related to Anesthesia: None Noted
--- NOTE | 2017-09-01 09:39 | POSTOPPROG ---
Post Op Note Date of Operation: 09/01/17 Surgeon: Christelle López Music Minister: Amna Rosen PA-C Anesthesiologist: Dr. Echevarria Anesthesia: GET(General Endotracheal) Pre-op Diagnosis: right shoulder rotator cuff tear Post-op Diagnosis: right shoulder rotator cuff tear Indication: right shoulder pain Procedure: right shoulder mini open rotator cuff repair Inf/Abcess present in the surg proc area at time of surgery?: No EBL: Minimal (20) Complications: none
[2017-09-01] MEDS ORDERED: ONDANSETRON DISINTEGRATING 4 MG TAB PO PRN (09:41)
[2017-09-01] MEDS ORDERED: OXYCODONE/APAP 5/325 TAB PO PRN (09:41)
--- NOTE | 2017-09-01 09:41 | SOAPPROG ---
SOAP Progress Note Assessment/Plan: Assessment/Plan: 62y/o female s/p right shoulder mini open rotator cuff repair - orders as written - sling at all times - keep incision clean and dry - medications as directed - f/u in 7-10 days - call with issues or concerns 09/01/17 09:39 Subjective: No pain, doing well Objective: Vital Signs Temp Pulse Resp BP Pulse Ox 36.8 C 68 18 123/85 H 93 09/01/17 06:24 09/01/17 06:53 09/01/17 06:53 09/01/17 06:53 09/01/17 06:53 NAD, waking from anesthesia, no distress EOMi, face symmetric incision clean, dressed ICD10 Worksheet Patient Problems: Problems Problem Status Onset Acute non-ST segment elevation myocardial infarction Acute Chronic obstructive pulmonary disease with acute exacerbation Acute Coronary artery disease Acute Hyperlipidemia Acute Hypertension Acute
[2017-09-01 10:43] VITALS: BP 120/72
--- NOTE | 2017-09-01 12:21 | PDHOMEO2F ---
Home Oxygen Face to Face Home Orders: I certify that a physician or a nurse practitioner or physician's pharmacist assistant has had a [id number] encounter with this patient on the date of this order due to the diagnosis listed, which relates to the primary reason the patient requires home oxygen. Alternative treatments have been tried, or considered, and deemed ineffective. It is anticipated that supplemental oxygen will result in improvement with treatment. Home oxygen qualifying diagnosis: hypoxemia SpO2 on room air (%): 85 Frequency of home oxygen needed: continuous Home oxygen liters per minute: 3 Home oxygen delivery device: nasal cannula Concentrator: Yes E-tanks for mobility and back up: Yes If ordering portable O2, is the patient mobile in the home?: Yes I certify that, based on these findings, the home oxygen is medically necessary for this patient for the following length of time. Length of time home oxygen needed: 1 week (s/p interscalene NB, phrenic hemiparesis)
--- NOTE | 2017-09-03 01:02 | GOP ---
[f rep st] OPERATIVE REPORT DATE OF OPERATION: 09/01/2017 SURGEON: Christelle López MD DITTO MACHINE OPERATOR: Amna Rosen, AIXA. ANESTHESIA: General with interscalene block. PREOPERATIVE DIAGNOSIS: Recurrent rotator cuff tear, right shoulder. POSTOPERATIVE DIAGNOSIS: Recurrent rotator cuff tear, right shoulder. PROCEDURE PERFORMED: Removal of foreign body and revision rotator cuff repair, right shoulder. FINDINGS: Preoperative MRI arthrogram of the patient's right shoulder demonstrated evidence of recur rent rotator cuff tear. This was a large tear involving the supraspinatus and a portion of the infra spinatus. It was retracted. There was also evidence of foreign body which on MRI appeared to be a d isplaced arthroscopic anchor. This was located in the subacromial space. At the time of surgery, an open rotator cuff repair was performed. The rotator cuff tear was exposed. The subacromial space w as carefully inspected, and with some difficulty, the foreign body was located and removed. Once thi s was accomplished, the rotator cuff repair was performed. Two fiber tapes were placed in a horizont al mattress fashion using the scorpion suture passer. A single FiberWire was also placed in a horizo ntal mattress fashion. This spanned the extent of the rotator cuff tear. Three bone tunnels were th en placed in the greater tuberosity. The sutures were passed through the bone tunnels in pairs and t hen the sutures were tied over a bone bridge laterally. The rotator cuff was pulled down into anatom ic position, and excellent fixation was achieved. ESTIMATED BLOOD LOSS: Minimal. DESCRIPTION OF PROCEDURE: The patient was taken to the operating room and placed in supine position on the operating table. Following placement of an interscalene block and induction of adequate gener al inhalation anesthesia, the patient was placed in the beach chair position. The shoulder and arm w ere prepped and draped in the usual sterile manner. She received 2 g of IV Ancef. The previous inci rolf was reopened. Incision was carried down through the subcutaneous tissue to the deltoid. The de ltoid was split in line with the incisions, and the old sutures in the deltoid were removed. The del toid was then elevated off the acromion for approximately 1 cm anteriorly and posteriorly. Careful s ubperiosteal dissection was performed along the deltoid. This exposed the subacromial space in the r otator cuff tear. There was marked subacromial bursitis. After extensive searching in the subacromi al space, the displaced suture anchor was located and removed. The suture material from the previous rotator cuff repair was also removed. Once this was accomplished, the bone at the junction of the a rticular surface in the greater tuberosity was debrided with an osteotome and rongeured. This create d a nice bed of bleeding bone to repair the rotator cuff. Next, the bone tunnels were created throug h this bed of bleeding bone and then out through the lateral aspect of the greater tuberosity. The s utures were passed using the [employer] suture passer. One #2 FiberWire was placed posteriorly and the n two fiber tapes were placed centrally and then anteriorly. This spanned the entire width of the ro tator cuff tear. The wound was then thoroughly irrigated and then the sutures were passed using the binh hook. The suture was pulled out laterally and then the sets of sutures were tied over the ramez ne bridges. The arm was held in abduction while the rotator cuff was pulled into position and tied d own. Excellent anatomic reduction of the rotator cuff was achieved. Again, the wound was irrigated out and the deltoid was closed using #2 FiberWire in a xffnyj-vo-xvtwr fashion. The subcutaneous tis daren was closed using 2-0 Vicryl, and the skin was closed using 4-0 Vicryl in a running subcuticular f ashion. Steri-Strips and sterile dressings were applied. The patient tolerated the procedure well, and there were no complications. ESTIMATED BLOOD LOSS: Minimal. Final sponge and needle counts were correct. The patient was transported to the recovery room in good condition. /[id number]/MODL
== END 2017-09-01 14:01 | disposition home or self-care (01) ==
LOC: FSGY 05:50
PROVIDERS: ATTEND Orthopaedic Surgery
PROC: 0LQ10ZZ Repair Right Shoulder Tendon, Open Approach (ICD-10-PCS; principal; 2017-09-01 07:15)
PROC: 0RPJ0JZ Removal of Synthetic Substitute from Right Shoulder Joint, Open Approach (ICD-10-PCS; principal; 2017-09-01 07:15)
DX: M75.121 Complete rotator cuff tear or rupture of right shoulder, not specified as traumatic (principal); I10 Essential (primary) hypertension; Z95.5 Presence of coronary angioplasty implant and graft; J44.9 Chronic obstructive pulmonary disease, unspecified; Z87.891 Personal history of nicotine dependence; K21.9 Gastro-esophageal reflux disease without esophagitis; I25.2 Old myocardial infarction
CPT/HCPCS: J0690; J0735; J2001; J2250; J2370; J2704; J3010